=== PATIENT | female | born 1980 | race Caucasian/White ===

== ENCOUNTER 2019-05-19 08:52 | Emergency (ER) | payer MEDICAID ==
[~2019-05-19] VITALS: Ht 165.1 cm; Wt 74.1 kg
[2019-05-19 08:58] VITALS: BP 115/80
--- NOTE | 2019-05-19 09:03 | NUR ---
PT AMBULATED TO ER BED 02
--- NOTE | 2019-05-19 09:05 | NUR ---
bib self c/o rt wrist pain x2 days. pain increases with movement. pt tx with motrin with no relief. pt denies trauma or injury.medhx:denies. PATIENT STATES PAIN OF 8/10 AT THIS TIME. ER MD MADE AWARE OF PT STATUS.
[2019-05-19 09:34] VITALS: BP 112/74
--- NOTE | 2019-05-19 09:34 | NUR ---
Note undone in EDM - 05/19/19 at 0936 by [email or web address] Patient discharged with v/s stable. Written and verbal after care instructions given and explained. Patient alert, oriented and verbalized understanding of instructions. [g ED.DCMODE] with [g ED.D/CMODE]. All questions addressed prior to discharge. ID band removed. Patient advised to follow up with PMD. Rx of [] given. Patient educated on indication of medication including possible reaction and side effects. Opportunity to ask questions provided and answered.
== END 2019-05-19 09:34 | disposition home or self-care (01) ==
LOC: MED 08:52
DX: M65.4 Radial styloid tenosynovitis [de Quervain] (principal); Z88.0 Allergy status to penicillin
CPT/HCPCS: 99283